=== PATIENT | male | born 1985 ===

== ENCOUNTER → 2021-07-18 | Outpatient (CLI) | payer OTHER ==
[2021-07-19 11:11] LABS: SARS COV-2 IGG AB Negative (Negative); SARS COV-2 IGM AB Negative (Negative)
== END ==
LOC: LAB SHORT 10:12 → LAB 10:12
PROVIDERS: Physician Assistant
DX: Z20.822 Contact with and (suspected) exposure to COVID-19 (principal)
CPT/HCPCS: 86769